=== PATIENT | female | born 1960 | race Caucasian/White ===

== ENCOUNTER 2018-12-18 02:38 | Emergency (ER) | payer SELFPAY ==
--- NOTE | 2018-12-18 03:08 | PDOC ---
History of Present Illness - General Chief Complaint: Headache Stated Complaint: HEADACHE Time Seen by Provider: 12/18/18 03:08 History Source: Patient Exam Limitations: Language Barrier - History of Present Illness Initial Comments: Candida Cano is a 58 yo obese F w a pmh of HTN, HCL, fatty liver and pre- diabetes who presents to the [facility] er with a headache that she has had for the past 3 weeks. She states she has been seen at urgent care for this headache and was diagnosed with an ear infection for which she received an antibiotic that she cannot name. She states that now she still has a headache, it is worse, and the area right behind her left ear is beginning to hurt. She denies photophobia or phonophobia. She endorses nausea but denies emesis. She denies fevers and chills as well but endorses left sided neck pain. The patient states that she has pain on the entire left side of her face which starts at her jaw, goes up to behind the ear, and then goes to her left forehead. She states It feels like a sharp shooting pain. Denies chest pain, SOB, difficulty breathing, numbness, weakness, tingling, urinary or bowel complaints. PCP: Giovanny Peterson PSH: Cholecystectomy Social Hx: Denies smoking, drinking, or other substance usage. Allergies:NKA, NKDA Past History - Past Medical History Allergies/Adverse Reactions: Allergies Allergy/AdvReac Type Severity Reaction Status Date / Time No Known Allergies Allergy Verified 12/18/18 03:18 Review of Systems - Review of Systems Able to Perform ROS?: Yes Comments:: CONSTITUTIONAL: Absent: fever, chills, diaphoresis, generalized weakness, malaise, loss of appetite HEENT: Present: ear pain, eye pain, facial pain Absent: rhinorrhea, nasal congestion, throat pain, throat swelling, difficulty swallowing, mouth swelling, visual Changes CARDIOVASCULAR: Absent: chest pain, syncope, palpitations, irregular heart rate, lightheadedness , peripheral edema RESPIRATORY: Absent: cough, shortness of breath, dyspnea with exertion, orthopnea, wheezing, stridor, hemoptysis GASTROINTESTINAL: Absent: abdominal pain, abdominal distension, nausea, vomiting, diarrhea, constipation, melena, hematochezia GENITOURINARY: Absent: dysuria, frequency, urgency, hesitancy, hematuria, flank pain, genital pain MUSCULOSKELETAL: Absent: myalgia, arthralgia, joint swelling SKIN: Absent: rash, itching, pallor HEMATOLOGIC/IMMUNOLOGIC: Absent: easy bleeding, easy bruising, lymphadenopathy, frequent infections ENDOCRINE: Absent: unexplained weight gain, unexplained weight loss, heat intolerance, cold intolerance NEUROLOGIC: Present: Headache Absent: focal weakness or paresthesias, dizziness, unsteady gait, seizure, mental status changes, bladder or bowel incontinence PSYCHIATRIC: Absent: anxiety, depression, suicidal or homicidal ideation, hallucinations. *Physical Exam - Physical Exam Comments: GENERAL: Patient appears to be in distress. Obese. Well-nourished. HEENT: The left mastoid bone is mildly tender. The external ears appear normal. The ear canals are not erythematous or tender. There is no tragus TTP. Normocephalic , atraumatic. PERRLA, EOMI. No conjunctival pallor. Sclera are non-icteric. Moist mucous membranes. Oropharynx is clear. CARDIOVASCULAR: Normal S1, S2. Regular rate and rhythm. PULMONARY: No evidence of respiratory distress. Lungs clear to auscultation bilaterally. No wheezing, rales or rhonchi. ABDOMEN: Soft, non-distended, non-tender. EXTREMITIES: Normal ROM in all four extremities. No gross deformities. SKIN: Warm, dry. No rash NEUROLOGICAL: Alert, awake, appropriate. Cranial nerves 2-12 intact. No deficits to light touch in face, upper extremities and lower extremities. No motor deficits in the in face, upper extremities and lower extremities. Normal speech. Gait is normal without ataxia. ED Treatment Course - LABORATORY CBC & Chemistry Diagram: 12/18/18 03:40 12/18/18 03:40 - RADIOLOGY Radiograph Interpretation: Head CT: EXAM: HEAD CT WITHOUT CONTRAST HISTORY rule out bleed versus mass versus infection COMPARISON: None. FINDINGS No acute intracranial abnormalities are identified. No hemorrhage. No visible mass or visible infarct. No edema shift or herniation. Osseous structures are intact. Medical Decision Making - Medical Decision Making Candida Cano is a 58 yo obese F w a pmh of HTN, HCL, fatty liver and pre- diabetes who presents to the [facility] er with a headache that she has had for the past 3 weeks. She states she has been seen at urgent care for this headache and was diagnosed with an ear infection for which she received an antibiotic that she cannot name. She states that now she still has a headache, it is worse, and the area right behind her left ear is beginning to hurt. She denies photophobia or phonophobia. She endorses nausea but denies emesis. She denies fevers and chills as well but endorses left sided neck pain. The patient states that she has pain on the entire left side of her face which starts at her jaw, goes up to behind the ear, and then goes to her left forehead. She states It feels like a sharp shooting pain. Vital Signs Temp Pulse Resp BP Pulse Ox 98 F 82 18 177/48 H 12/18/18 03:07 12/18/18 03:07 12/18/18 03:26 12/18/18 03:07 DDx IBNLT: Mastoiditis, otitis, URI, Headache - Migraine vs tension, electrolyte /metabolic disturbance Plan: Labs, EKG, Head CT, analgesia, IV hydration, re-assess. EKG: NS rate of 85, RBBB, borderline LAD possibly normal, minimal hypertrophy, no ST elevations or depressions, TWI in lead III, QT 356, NH 160 Labs: Elevated liver enzymes and mild hyperglycemia Head CT: No acute pathology Re-assessment: Patient feels better after analgesia and requests to be discharged. Disposition: Home with PCP, neuro and ENT follow up Discharge - Discharge Information Problems reviewed: Yes Clinical Impression/Diagnosis: Headache Qualifiers: Headache type: unspecified Headache chronicity pattern: acute headache Intractability: not intractable Qualified Code(s): R51 - Headache Condition: Improved Disposition: HOME - Admission No - Follow up/Referral Referrals: Giovanny Peterson PA [Primary Care Provider] - Armond Isaac MD [Staff Physician] - - Patient Discharge Instructions Patient Printed Discharge Instructions: Migraine Headaches (Alternative Therapy ), DI for Headache, DI for Ear Pain-Adult Additional Instructions: You came into the ER with a headache and ear pain. We gave you some medications which made you feel better. Please call up the ENT doctor we are referring you to and follow up in the next 5 to 10 days to make sure you are feeling well and getting better. Come back to the ER immediately if your pain worsens or you have any other new or worsening complaints. Thank you for coming to the [facility] ER. We hope you feel better soon! Print Language: ROMANIAN - Post Discharge Activity
[2018-12-18 03:18] VITALS: PULSE 82; TEMP 98; BMI 61.6
[2018-12-18] MEDS ORDERED: SODIUM CHLORIDE 1,000 ML IV ONE (03:26)
[2018-12-18] MEDS ORDERED: METOCLOPRAMIDE HCL INJECTION 10 MG/2 ML VIAL IVPUSH STA (03:26)
[2018-12-18] MEDS ORDERED: ACETAMINOPHEN 1000 MG/100 ML VIAL (NON FORMULARY) IVPB ONE (03:27)
[2018-12-18] MEDS ORDERED: ACETAMINOPHEN INJECTION 100 ML IVPB ONE (03:41)
[2018-12-18] MEDS ORDERED: METOCLOPRAMIDE HCL INJECTION 10 MG/2 ML VIAL ONE (03:41)
[2018-12-18 03:47] LABS: BASO % 0.6 % (0-2.0); EOS % 2.6 % (0-4.5); HEMATOCRIT 43.3 % (32.4-45.2); HEMOGLOBIN 14.9 GM/dL (10.7-15.3); LYMPH % 49.8 % (8-40); MCH 28.2 pg (25.7-33.7); MCHC 34.4 g/dl (32.0-36.0); MEAN CELL VOLUME 81.8 fl (80-96); MONO % 7.4 % (3.8-10.2); NEUT % 39.6 % (42.8-82.8); PLATELET COUNT 240 K/MM3 (134-434); RBC 5.29 M/mm3 (3.60-5.2); RDW 14.6 % (11.6-15.6); WHITE BLOOD COUNT 8.6 K/mm3 (4.0-10.0)
[2018-12-18 04:07] LABS: ALBUMIN 3.4 g/dl (3.4-5.0); BILIRUBIN,TOTAL 0.4 mg/dL (0.2-1); BLOOD UREA NITROGEN 14.4 mg/dL (7-18); CALCIUM 8.6 mg/dL (8.5-10.1); CREATININE 0.8 mg/dL (0.55-1.3); POTASSIUM 3.9 mmol/L (3.5-5.1); TOT PROT 7.4 g/dl (6.4-8.2)
[2018-12-18] MEDS ORDERED: KETOROLAC TROMETHAMINE 30 MG/1 ML VIAL IVPUSH ONE (04:55)
[2018-12-18 05:01] VITALS: BP 162/84
[2018-12-18] MEDS ORDERED: KETOROLAC TROMETHAMINE 30 MG/1 ML VIAL ONE (05:04)
--- NOTE | 2018-12-18 05:20 | PDOC ---
Attending Attestation - Resident Resident Name: Edvin Goodwin - ED Attending Attestation I have performed the following: I have examined & evaluated the patient, The case was reviewed & discussed with the resident, I agree w/resident's findings & plan, Exceptions are as noted - HPI HPI: 12/18/18 05:16 58 yo F with h/o fatty liver, htn hlc, on enalapril, here today c/o pulsating headche behind left ear. states started few days aog. describe as pounding heart beat in her ear. saw doctor was started on abx for ear infection. still c/ o headache. no weakness. no vision changes. no f/c nausea no vomiting. . did not take any thin for her pain prior to arrvial - Physicial Exam PE: 12/18/18 05:18 awake alert lungs clear bilat heart rrr no mrg abdsoft nt nd et wwp no edema. TM with clear serous effusion left greater than right. - Medical Decision Making 12/18/18 05:19 58 yo F with ear pain. pounding. differential ich, other mass, otitis externa or efffusion.
--- NOTE | 2018-12-18 13:20 | EKG ---
Test Reason : Blood Pressure : / mmHG Vent. Rate : 146 BPM Atrial Rate : 081 BPM P-R Int : 160 ms QRS Dur : 146 ms QT Int : 356 ms P-R-T Axes : 049 -33 003 degrees QTc Int : 554 ms POOR DATA QUALITY, INTERPRETATION MAY BE ADVERSELY AFFECTED SINUS RHYTHM LEFT AXIS DEVIATION RIGHT BUNDLE BRANCH BLOCK MINIMAL VOLTAGE CRITERIA FOR LVH, MAY BE NORMAL VARIANT ABNORMAL ECG Confirmed by MIKAEL LEMUS, LETICIA ([id number]) on 12/18/2018 1:19:44 PM Referred By: Confirmed By:LETICIA YOUSSEF MD
== END 2018-12-18 05:41 | disposition home or self-care (01) ==
LOC: JER 02:38
PROC: 3E033NZ Introduction of Analgesics, Hypnotics, Sedatives into Peripheral Vein, Percutaneous Approach (ICD-10-PCS; principal; 2018-12-18)
PROC: 3E033GC Introduction of Other Therapeutic Substance into Peripheral Vein, Percutaneous Approach (ICD-10-PCS; 2018-12-18)
PROC: 3E0333Z Introduction of Anti-inflammatory into Peripheral Vein, Percutaneous Approach (ICD-10-PCS; 2018-12-18)
PROC: 3E0337Z Introduction of Electrolytic and Water Balance Substance into Peripheral Vein, Percutaneous Approach (ICD-10-PCS; 2018-12-18)
DX: R51 Headache (principal); R73.03 Prediabetes; I10 Essential (primary) hypertension; K76.0 Fatty (change of) liver, not elsewhere classified; E66.01 Morbid (severe) obesity due to excess calories; Z68.44 Body mass index [BMI] 60.0-69.9, adult
CPT/HCPCS: 36415; 70450-TC; 80053; 85025; 93005; 93010; 99282-25; J0131; J7030

== ENCOUNTER 2019-12-09 10:48 | Emergency (ER) | payer OTHER ==
[2019-12-09 10:54] VITALS: BP 157/90; PULSE 102; TEMP 98; BMI 36.6
[2019-12-09] MEDS ORDERED: ACETAMINOPHEN 500 MG TABLET (FP) PO ONE (11:21)
[2019-12-09] MEDS ORDERED: ACETAMINOPHEN 500 MG TABLET (FP) ONE (11:24)
--- OUTSIDE RECORDS SUMMARY | 2019-12-09 11:41 | XMS ---
:1960 Author Organization [facility] Care Team Providers Name Role Phone Dannie Llamashi Unavailable [phone] ED STAFF PHYSICIAN, STAFF Unavailable Unavailable Aszalos, Opal Tori Unavailable Unavailable Aszalos, Tori Unavailable Unavailable Aszalos, Tori Unavailable Unavailable Aszalos, Tori Unavailable Unavailable Aszalos, Tori Unavailable Unavailable Aszalos, Tori Unavailable Unavailable Aszalos, Tori Unavailable Unavailable Aszalos, Tori Unavailable Unavailable Aszalos, Tori Unavailable Unavailable Castellanos Unavailable [phone] Castellanos Unavailable [phone] Brianda Mcintosh MD Unavailable Unavailable Brianda Mcintosh MD Unavailable Unavailable Brianda Mcintosh MD Unavailable Unavailable Brianda Mcintosh MD Unavailable Unavailable Brianda Mcintosh MD Unavailable Unavailable Brianda Mcintosh MD Unavailable Unavailable Brianda Mcintosh MD Unavailable Unavailable Brianda Mcintosh MD Unavailable Unavailable Brianda Mcintosh MD Unavailable Unavailable Brianda Mcintosh MD Unavailable Unavailable Brianda Mcintosh MD Unavailable Unavailable Brianda Mcintosh MD Unavailable Unavailable Brianda Mcintosh MD Unavailable Unavailable Brianda Mcintosh MD Unavailable Unavailable Brianda Mcintosh MD Unavailable Unavailable FEBRILLET KAYLIE P Unavailable Unavailable ZUNASSIGNED Unavailable Unavailable HECTOR OMIEL L Unavailable Unavailable Sanchez Unavailable Unavailable Sanchez Unavailable Unavailable Sanchez Unavailable Unavailable Sanchez Unavailable Unavailable Sanchez Unavailable Unavailable Ringstad Unavailable Unavailable Ringstad Unavailable Unavailable Ringstad Unavailable Unavailable Ringstad Unavailable Unavailable Ringstad Unavailable Unavailable Ringstad Unavailable Unavailable Ringstad Unavailable Unavailable Ringstad Unavailable Unavailable Ringstad Unavailable Unavailable Ringstad Unavailable Unavailable Ringstad Unavailable Unavailable Glenn Unavailable [phone] Re-disclosure Warning The records that you are about to access may contain information from federally- assisted alcohol or drug abuse programs. If such information is present, then the following federally mandated warning applies: This information has been disclosed to you from records protected by federal confidentiality rules (42 CFR part 2). The federal rules prohibit you from making any further disclosure of this information unless further disclosure is expressly permitted by the written consent of the person to whom it pertains or as otherwise permitted by 42 CFR part 2. A general authorization for the release of medical or other information is NOT sufficient for this purpose. The Federal rules restrict any use of the information to criminally investigate or prosecute any alcohol or drug abuse patient.The records that you are about to access may contain highly sensitive health information, the redisclosure of which is protected by Article 27-F of the [facility] Public Health law. If you continue you may haveaccess to information: Regarding HIV / AIDS; Provided by facilities licensed or operated by the [facility] Office of Mental Health; or Provided by the [facility] Office for People With Developmental Disabilities. If such information is present, then the following [facility] mandated warning applies: This information has been disclosed to you from confidential records which are protected by state law. State law prohibits you from making any further disclosure of this information without the specific written consent of the person to whom it pertains, or as otherwise permitted by law. Any unauthorized further disclosure in violation of state law may result in a fine or nursing home sentence or both. A general authorization for the release of medical or other information is NOT sufficient authorization for further disclosure. Allergies and Adverse Reactions Type Description Substance Reaction Status Data Source(s ) Propensity to Propensity to Propensity to NEXTG EN ([facility] adverse reactions adverse reactions adverse reactions [facility] Medical (disorder) (disorder) (disorder) Center) Encounters Encounter Providers Location Date Indications Data Source(s ) Emergency Attender: KRUNAL Pichardo 12/06/2019 [facility]ZON LAttender: 11:26:00 PM Medical Center STAFF ED STAFF EDT - PHYSICIANAdmitter: 12/07/2019 HECTOR NOY 02:26:00 AM LReferrer: EDT ZUNASSIGNED Patient discharged. Outpatient Attender: KAYLIE Pichardo 07/16/2019 12:05:00 S aiaram Rachid LOTT PM EDT Medical Ce nter PAdmitter: KAYILE LOTT PReferrer: KAYLIE WESTBROOKJOSEPH [place] Outpatient Attender: KAYLIE Pichardo 05/01/2019 02:19:00 S aiaram Rachid WESTBROOKJOSEPH KAYLIE PM EST Medical Ce nter PAdmitter: KAYLIE SERRA KAYLIE PReferrer: KAYLIE WESTBROOKJOSEPH [place] Outpatient Attender: KAYLIE Pichardo 04/20/2019 02:21:00 S aiaram Rachid LOTT PM EST Medical Ce nter PAdmitter: KAYLIE LOTT PReferrer: KAYLIE WESTBROOKJOSEPH [place] Attender: [facility] 11/26/2018 03:01:00 NEXTGEN ([facility] PM EDT - 11/26/2018 [facility] Medical 03:01:00 PM EDT Center) [facility] 11/24/2018 11:15:00 [facility] AM EDT - 11/24/2018 [facility] 02:52:00 PM EDT Patient discharged. Attender: [facility] 07/18/2018 02:49:00 [facility] EDT - 07/18/2018 [facility] 02:49:00 PM EDT Center) Attender: [facility] 07/08/2018 11:45:00 [facility] ([facility] EDT - 07/08/2018 [facility] 11:45:00 AM EDT Center) Attender: [facility] 07/03/2018 09:40:00 A [facility] ([facility] EDT - 07/03/2018 [facility] 09:40:00 AM EDT Center) Attender: [facility] 04/29/2018 12:32:00 [facility] ([facility] EST - 04/29/2018 [facility] 12:32:00 PM EST Center) Attender: Monika 04/09/2018 12:10:00 [facility] ([facility] - 04/09/2018 [facility] 12:10:00 PM EST Center) Attender: [facility] 04/09/2018 10:00:00 AM NEXTGEN ([facility] EST - 04/09/2018 [facility] 10:00:00 AM EST Center) Attender: [facility] 12/27/2014 01:04:00 PM NEXTGEN ([facility] EDT - 12/27/2014 [facility] 01:04:00 PM EDT Center) Attender: [facility] 11/18/2014 09:11:00 AM NEXTGEN ([facility] EDT - 11/18/2014 [facility] 09:11:00 AM EDT Center) Attender: [facility] 02/02/2014 01:28:00 PM NEXTGEN ([facility] EST - 02/02/2014 [facility] 01:28:00 PM EST Center) Attender: [facility] 01/26/2014 01:19:00 PM NEXTGEN ([facility] - 01/26/2014 [facility] 01:19:00 PM EST Center) Attender: [facility] 01/18/2014 01:02:00 PM NEXTGEN ([facility] - 01/18/2014 [facility] 01:02:00 PM EST Center) Attender: [facility] 01/11/2014 01:16:00 PM NEXTGEN ([facility] - 01/11/2014 [facility] 01:16:00 PM EST Center) Attender: [facility] 01/05/2014 10:51:00 AM NEXTGEN ([facility] EST - 01/05/2014 [facility] 10:51:00 AM EST Center) Immunizations Vaccine Date Status Description Data Source(s) IIV3. This is one of 12/27/2014 completed Influenza, seasonal, NEXTGEN ([facility] two codes replacing 12:00:00 AM EDT injectable (3 yrs or [facility] Medical CVX 15, which is older) Center) being retired. Source: New Immunization Record This code is being 01/05/2014 12:00:00 completed Flu (split) (3 NEXTGEN ([facility] retired. It will still be AM EST yrs or older) [facility] found in older Center) immunization records. It included both preservative free and non-preservative free. Source: New Immunization Record Tdap 01/05/2014 12:00:00 AM EST completed Tdap N EXTGEN ([facility]) Source: New Immunization Record Medications Medication Brand Start Product Dose Route Administrative Pharmacy fidelia Indications Reaction Description Data Name Date Form Instructions Instructions Source(s) Metformin metfor ORAL complet take 1 N EXTGEN hydrochlori min 2014 {tbl} ed tablet by (S aint de 500 MG 500 mg 12:00: oral route 2 Rachid Oral Tablet tablet 00 AM times ever y Medical metformin EDT day with Center ) 500 mg morning and tablet evening meals Lisinopril lisino ORAL complet take 1 NEXTGEN 5 MG Oral pril 5 2014 {tbl} ed tablet by (S aint Tablet mg 12:00: oral route Faisal hs lisinopril tablet 00 AM every day M edical 5 mg tablet EDT Center) Amlodipine amlodi ORAL active take 1 N EXTGEN 5 MG Oral pine 5 2014 {tbl} tablet by (S aint Tablet mg 12:00: oral route Faisal hs amlodipine tablet 00 AM every day M edical 5 mg tablet EDT Center) Hydrochloro hydroc ORAL complet take 1 NEXTGEN thiazide hlorot 2014 {tbl} ed tablet by (Sa int 12.5 MG hiazid 12:00: oral route Kavitha sephs Oral Tablet e 12.5 00 AM every day Medical hydrochloro mg EDT Center) thiazide tablet 12.5 mg tablet Benicar 5 Olmesa . ORAL complet take 2 N EXTGEN mg tablet rtan 2013 {tbl} ed tablet by (Martín nt medoxo 12:00: oral route Faisal hs mil 5 00 AM every day Medical MG EST Center) Oral Tablet [Benic ar] POLYETHYLEN Mirala 01/26/ complet POLYET HYLENE NEXTGEN E GLYCOL x 2013 ed GLYCOL 3350 (Martín nt 3350 142 gram/d 12:00: 16984 MG [place] ephs MG/ML Oral ose 00 AM Powder for Me dical Solution oral EST Oral Center) [Miralax] powder Solution Miralax 17 [Miralax] gram/dose oral powder nebivolol 5 Bystol .00 ORAL complet nebivo lol 5 NEXTGEN MG Oral ic 2013 {tbl} ed MG Oral (Saint Tablet mg 12:00: Tablet Rachid [Bystolic] tablet 00 AM [Bystolic] Medical Bystolic 5 EST Center) mg tablet Acetaminoph oxyCOD 1 complet Martín nt en 325 MG / ONE-ac ed Darrian s Oxycodone etamin Medical Hydrochlori ophen Center de 5 MG 5 Oral Tablet mg-325 oxyCODONE-a mg cetaminophe Tablet n 5 mg-325 , mg Tablet, Ordere Ordered By: d By: Krunal Salmeron MDDirection , s: 1 tablet MDDire oral every ctions six hours : 1 PRN pain tablet oral every six hours PRN pain Ibuprofen ibupro 1 complet [facility] 800 MG Oral fen ed Rachid Tablet 800 mg Medical ibuprofen Tablet Center 800 mg , Tablet, Ordere Ordered By: d By: Krunal Salmeron MDDirection , s: 1 tablet MDDire oral every ctions eight hours : 1 PRN tablet pain-modera oral te every eight hours PRN pain-m oderat e meloxicam meloxi 1 complet [facility] 15 MG Oral cam 15 ed Rachid Tablet mg Medical meloxicam Tablet Center 15 mg , Tablet, Ordere Ordered By: d By: Samanta Aguilar MDDirection r, s: 1 tablet MDDire oral daily ctions : 1 tablet oral daily Cyclobenzap cyclob 1 complet Martín nt rine enzapr ed Rachid hydrochlori ine 10 Medica l de 10 MG mg Center Oral Tablet Tablet cyclobenzap , rine 10 mg Ordere Tablet, d By: Ordered By: andre Worrell MDDirection MDDire s: 1 tablet ctions oral three : 1 times a day tablet PRN oral pain-modera three te times a day PRN pain-m oderat e Lidocaine lidoca 1 complet Saint 50 MG/ML ine 5 ed Rachid Topical % Medical Cream Cream, Center lidocaine 5 Ordere % Cream, d By: Ordered By: Noy Hector, , MDDirection MDDire s: 1 ctions application : 1 per rectum applic twice a day ation per rectum twice a day Insurance Providers Payer name Policy type Policy ID Covered Covered libertarian's Policy P anastasiya / Coverage libertarian ID relationship to Pastor Inf ormation type pastor HMO O [id number] 01 [id number] ESSENTIALS-COM MERCIAL [facility] O [id number] 01 [id number] HEALTHCARE OPD SELF PAY SP INSURANCE O O X F O R D O [id number] Problems, Conditions, and Diagnoses Code Display Name Description Problem Type Effective Data Sour ce(s) Dates [id number] Hypertensive Hypertensive Problem 01/05/2014 COUNTS INCLUDE 234 BEDS AT THE [facility] ( aint disorder disorder 12:00:00 AM [facility]) [id number] Diabetes mellitus Diabetes mellitus Problem COUNTS INCLUDE 234 BEDS AT THE [facility] ([facility]) [id number] Dyslipidemia Dyslipidemia Problem COUNTS INCLUDE 234 BEDS AT THE [facility] ([facility]) R92.8 Other abnormal OTH ABN AND Diagnosis 07/16/2019 [facility] ephs and inconclusive INCONCLUSIVE 12:05:00 PM [facility] Center findings on FINDINGS ON DX EDT diagnostic IMAGING OF BREAST imaging of breast Z12.31 Encounter for ENCNTR SCREEN Diagnosis 05/01/2019 [facility] screening MAMMOGRAM FOR 02:19:00 PM Medical Ce nter mammogram for MALIGNANT EST malignant NEOPLASM OF neoplasm of BREAST breast M54.5 Low back pain LOW BACK PAIN Diagnosis 04/20/2019 [facility] 02:21:00 PM Medical Amalia r EST G44.209 Tension-type TENSION-TYPE Diagnosis 11/24/2018 [facility] phs headache, HEADACHE, 11:15:00 AM Medical Amalia powell unspecified, not UNSPECIFIED, NOT EDT intractable INTRACTABLE R51 Headache HEADACHE Diagnosis 11/24/2018 [facility] 11:15:00 AM Medical Amalia powell EDT Results ID Date Data Source LIPID.[id number] 11/24/2018 11:47:00 AM EDT [facility] Name Value Range Interpretation Description Data Sup porting Code Source(s) Document(s ) UNK < 100 Above high normal <content Saint styleCode="Marta Rashid d">LDL-Cholest [facility] </content>186 MG/DL H<content styleCode="Estee lics"> (< 100 MG/DL)</conten t> Cholesterol -<200 Above high normal <content Saint [Mass/volume] in styleCode="[facility] Serum or Plasma d">Cholesterol Medical </content>259 Center MG/DL H<content styleCode="Estee lics"> (-<200 MG/DL)</conten t> UNK > 60 Below low normal <content Saint styleCode="[facility] d">HDL- Medical Cholesterol Center </content>36 MG/DL L<content styleCode="Estee lics"> (> 60 MG/DL)</conten t> Triglyceride < 150 Above high normal <content Saint [Mass/volume] in styleCode="[facility] Serum or Plasma d">Triglycerid Medical es Center </content>184 MG/DL H<content styleCode="Estee lics"> (< 150 MG/DL)</conten t> ID Date Data Source HematologyRou.[id number] 11/24/2018 11:47:00 AM EDT Martín [facility] 0400 Name Value Range Interpretation Description Data Sup porting Code Source(s) Document(s ) Hemoglobin 12.3-16. <content Saint [Mass/volume] in 0 styleCode="Bold Rachid Blood ">Hemoglobin Medical </content>15.1 Center G/DL<content styleCode="Ital ics"> (12.3-16.0 G/DL)</content> Leukocytes 4.4-11.0 <content Saint [#/volume] in styleCode="Bold Rachid Blood by ">White Blood Medical Automated count Cell Count Center </content>7.97 KCUMM<content styleCode="Ital ics"> (4.4-11.0 KCUMM)</content > Erythrocytes 4.0-5.1 Above high <content Saint [#/volume] in normal styleCode="Bold Rachid Blood by ">Red Blood Medical Automated count Cell Count Center </content>5.43 MCUMM H<content styleCode="Ital ics"> (4.0-5.1 MCUMM)</content > Hematocrit 36.0-46. <content Saint [Volume 0 styleCode="Bold Rachid Fraction] of ">Hematocrit Medical Blood by </content>43.0 Center Automated count %<content styleCode="Ital ics"> (36.0-46.0 %)</content> Erythrocyte mean 32.0-37. <content Saint corpuscular 0 styleCode="Bold Rachid hemoglobin ">Mean Corpus. Medical concentration Hgb Center [Mass/volume] by Concentration Automated count (MCHC) </content>35.1 G/DL<content styleCode="Ital ics"> (32.0-37.0 G/DL)</content> Erythrocyte mean 80.0-100 <content Saint corpuscular .0 styleCode="Bold Rachid volume [Entitic ">Mean Medical volume] by Corpuscular Center Automated count Volume </content>79.2 FL<content styleCode="Ital ics"> (80.0-100.0 FL)</content> Platelets 130-400 <content Saint [#/volume] in styleCode="Bold Rachid Blood by ">Platelet Medical Automated count Count Center </content>286 KCUMM<content styleCode="Ital ics"> (130-400 KCUMM)</content > Erythrocyte mean 26.0-34. <content [facility] corpuscular 0 styleCode="Bold Rachid hemoglobin ">Mean Medical [Entitic mass] Corposcular Center by Automated Hemoglobin count </content>27.8 PG<content styleCode="Ital ics"> (26.0-34.0 PG)</content> Erythrocyte 11.5-14. <content Saint distribution 5 styleCode="Bold Rachid width [Ratio] by ">Red Cell Medical Automated count Distribution Center Width </content>13.6 %<content styleCode="Ital ics"> (11.5-14.5 %)</content> UNK 0.0 <content Saint styleCode="Bold Rachid ">Nucleated Red Medical Blood Cell Center Count </content>0.00 KCUMM<content styleCode="Ital ics"> (0.0 KCUMM)</content > UNK 0 <content Saint styleCode="Bold Rachid ">Nucleated Red Medical Blood Cell Center </content>0.0 /100<content styleCode="Ital ics"> (0 /100)</content> Platelet mean 8.0-11.0 <content Saint volume [Entitic styleCode="Bold Rachid volume] in Blood ">Mean Platelet Medical by Automated Volume Center count </content>10.9 FL<content styleCode="Ital ics"> (8.0-11.0 FL)</content> ID Date Data Source GFR(Creatinine).[id number] 11/24/2018 11:47:00 AM EDT [facility] 0-0400 Name Value Range Interpretation Code Description Data Yareli rce(s) Supporting Document(s ) UNK > 60 <content [facility] styleCode="Bold"> Medical Cent er EGFR </content>91 GFR<content styleCode="Italic s"> (> 60 GFR)</content> ID Date Data Source Coagulation 11/24/2018 11:47:00 AM [facility] ical Center Rout.[id number] EDT Name Value Range Interpretation Description Data Sup porting Code Source(s) Document(s ) UNK 9.0-13.0 <content Saint styleCode="Bold" Rachid >Protime Medical </content>12.4 Center SEC<content styleCode="Itali cs"> (9.0-13.0 SEC)</content> aPTT in 25.1-36. <content Saint Platelet poor 5 styleCode="Bold" Rachid plasma by >Partial Medical Coagulation Thromboplastin Center assay Time </content>30.9 SEC<content styleCode="Itali cs"> (25.1-36.5 SEC)</content> INR in 0.80-1.2 <content Saint Platelet poor 0 styleCode="Bold" Rachid plasma by >INR Medical Coagulation </content>1.12 Center assay #<content styleCode="Itali cs"> (0.80-1.20 #)</content> ID Date Data Source CardiacMarkers.[id number] 11/24/2018 11:47:00 AM EDT [facility] -0400 Name Value Range Interpretation Description Data Sup porting Code Source(s) Document(s ) Troponin < 0.034 <content Saint I.cardiac styleCode="Bold Rachid [Mass/volume ">Troponin I Medical ] in Serum </content>< Center or Plasma 0.012 NG/ML<content styleCode="Ital ics"> (< 0.034 NG/ML)</content > ID Date Data Source [facility].[id number] 11/24/2018 11:47:00 AM EDT [facility] Medical Center Name Value Range Interpretation Description Data Sup porting Code Source(s) Document(s ) Sodium 137-145 <content Saint [Moles/volume] styleCode="Marta Rachid in Serum or d">Sodium Medical Plasma </content>141 Center MEQ/L<content styleCode="Estee lics"> (137-145 MEQ/L)</conten t> Potassium 3.5-5.3 <content Saint [Moles/volume] styleCode="Marta Rachid in Serum or d">Potassium Medical Plasma </content>4.4 Center MEQ/L<content styleCode="Estee lics"> (3.5-5.3 MEQ/L)</conten t> UNK 7-17 <content Saint styleCode="Marta Rachid d">BUN Medical </content>15 Center MG/DL<content styleCode="Estee lics"> (7-17 MG/DL)</conten t> Chloride 98-107 <content Saint [Moles/volume] styleCode="Marta Rachid in Serum or d">Chloride Medical Plasma </content>100 Center MEQ/L<content styleCode="Estee lics"> (98-107 MEQ/L)</conten t> Carbon 22-30 <content Saint dioxide, total styleCode="Marta Rachid [Moles/volume] d">Carbon Medical in Serum or Dioxide Center Plasma </content>30 MEQ/L<content styleCode="Estee lics"> (22-30 MEQ/L)</conten t> Creatinine 0.5-1.3 <content Saint [Mass/volume] styleCode="Marta Rachid in Serum or d">Creatinine Medical Plasma </content>0.7 Center MG/DL<content styleCode="Estee lics"> (0.5-1.3 MG/DL)</conten t> Glucose 74-106 Above high normal <content Saint [Mass/volume] styleCode="Marta Colmenaress in Serum or d">Glucose Medical Plasma </content>167 Center MG/DL H<content styleCode="Estee lics"> (74-106 MG/DL)</conten t> UNK > 60 <content Saint styleCode="Marta Colmenaress d">EGFR Medical </content>91 Center GFR<content styleCode="Estee lics"> (> 60 GFR)</content> Calcium 8.4-10.2 <content Saint [Mass/volume] styleCode="Marta Colmenaress in Serum or d">Calcium Medical Plasma </content>9.8 Center MG/DL<content styleCode="Estee lics"> (8.4-10.2 MG/DL)</conten t> ID Date Data Source Urinalysis.[id number] 11/24/2018 11:41:00 AM EDT [facility] 0 Name Value Range Interpretation Description Data Sup porting Code Source(s) Document(s ) Specific 1.015-1.02 <content Saint gravity of 5 styleCode="Marta Rashid Urine by Test d">Urine Medical strip Specific Center [place] </content>1.01 5 <content styleCode="Estee lics"> (1.015-1.025 )</content> Glucose NEGATIVE <content Saint [Mass/volume] styleCode="Marta Colmenaress in Urine by d">Urine Medical Test strip Glucose Center </content>NEGA TIVE MG/DL<content styleCode="Estee lics"> (NEGATIVE MG/DL)</conten t> UNK CLEAR <content Saint styleCode="Marta Colmenaress d">Urine Medical Clarity Center </content>FRANCISCA R <content styleCode="Estee lics"> (CLEAR )</content> UNK NEGATIVE <content Saint styleCode="Marta Rachid d">Urine Medical Bilirubin Center </content>NEGA TIVE <content styleCode="Estee lics"> (NEGATIVE )</content> Ketones NEGATIVE <content Saint [Mass/volume] styleCode="Marta Colmenaress in Urine by d">Urine Medical Test strip Ketone Center </content>NEGA TIVE MG/DL<content styleCode="Estee lics"> (NEGATIVE MG/DL)</conten t> Color of Urine YELLOW <content Saint styleCode="Marta Rachid d">Color, Medical Urine Center </content>YELL OW <content styleCode="Estee lics"> (YELLOW )</content> Hemoglobin NEGATIVE <content Saint [Presence] in styleCode="Marta Colmenaress Urine by Test d">Urine Blood Medical strip </content>TRAC Center E <content styleCode="Estee lics"> (NEGATIVE )</content> Nitrite NEGATIVE <content Saint [Presence] in styleCode="Marta Colmenaress Urine by Test d">Urine Medical strip Nitrite Center </content>NEGA TIVE <content styleCode="Estee lics"> (NEGATIVE )</content> Protein NEGATIVE <content Saint [Mass/volume] styleCode="Marta Colmenaress in Urine by d">Urine Medical Test strip Protein Center </content>TRAC E MG/DL<content styleCode="Estee lics"> (NEGATIVE MG/DL)</conten t> pH of Urine by 4.5-8.0 <content Saint Test strip styleCode="Marta Rachid d">Urine pH Medical </content>6.0 Center <content styleCode="Estee lics"> (4.5-8.0 )</content> Urobilinogen 0.2-1.0 <content Saint [Units/volume] styleCode="Marta Rachid in Urine by d">Urine Medical Test strip Urobilinogen Center </content>0.2 MG/DL<content styleCode="Estee lics"> (0.2-1.0 MG/DL)</conten t> UNK NEGATIVE <content Saint styleCode="Marta Rachid d">Urine Medical Bacteria Center </content>FEW HPF<content styleCode="Estee lics"> (NEGATIVE HPF)</content> UNK 0-3 <content Saint styleCode="Marta Rachid d">Urine Red Medical Blood Cell Center </content>0-3 HPF<content styleCode="Estee lics"> (0-3 HPF)</content> UNK 0-3 <content Saint styleCode="Marta Colmenaress d">Urine White Medical Blood Cell Center </content>0-3 HPF<content styleCode="Estee lics"> (0-3 HPF)</content> UNK <content Saint styleCode="Marta Colmenaress d">Epithelial Medical Cell Center </content>2-5 LPF (Reference Range: not available)<br/ > Leukocyte NEGATIVE <content esterase styleCode="Marta Rashid [Presence] in d">Urine Medical Urine by Test Leukocyte Center strip </content>NEGA TIVE <content styleCode="Estee lics"> (NEGATIVE )</content> ID Date Data Source Liver Profile 04/09/2018 12:10:00 PM EST [facility] Name Value Range Interpretation Description Data Sup porting Code Source(s) Document(s ) Aspartate 14-36 Above high <content Saint aminotransferase normal styleCode="Bold"> Faisal hs [Enzymatic Aspartate Medical activity/volume] Aminotransferase Center in Serum or Plasma (AST) </content>98 IU/L H<content styleCode="Italic s"> (14-36 IU/L)</content> Bilirubin.total 0.2-1.3 <content Saint [Mass/volume] in styleCode="Bold"> Faisal hs Serum or Plasma Bilirubin Total Medical </content>0.5 Center MG/DL<content styleCode="Italic s"> (0.2-1.3 MG/DL)</content> Albumin 3.5-5.0 <content [facility] [Mass/volume] in styleCode="Bold"> Faisal hs Serum or Plasma Albumin Medical </content>4.4 Center G/DL<content styleCode="Italic s"> (3.5-5.0 G/DL)</content> Alkaline 38-126 Above high <content [facility] phosphatase normal styleCode="Bold"> Rachid [Enzymatic Alkaline Medical activity/volume] Phosphatase (ALP) Cente r in Serum or Plasma </content>127 IU/L H<content styleCode="Italic s"> (38-126 IU/L)</content> Alanine 7-30 Above high <content [facility] aminotransferase normal styleCode="Bold"> Faisal hs [Enzymatic Alanine Medical activity/volume] Aminotransferase Center in Serum or Plasma (ALT) </content>116 IU/L H<content styleCode="Italic s"> (7-30 IU/L)</content> ID Date Data Source [id number] 04/09/2018 12:10:00 PM [facility] Name Value Range Interpretation Description Data Sup porting Code Source(s) Document(s ) Cholesterol -<200 Above high normal <content Saint [Mass/volume] in styleCode="[facility] Serum or Plasma d">Cholesterol Medical </content>244 Center MG/DL H<content styleCode="Estee lics"> (-<200 MG/DL)</conten t> Triglyceride < 150 Above high normal <content Saint [Mass/volume] in styleCode="[facility] Serum or Plasma d">Triglycerid Medical Center </content>151 MG/DL H<content styleCode="Estee lics"> (< 150 MG/DL)</conten t> UNK < 100 Above high normal <content Saint styleCode="Marta Rachid d">LDL-Cholest Medical vincent Center </content>175 MG/DL H<content styleCode="Estee lics"> (< 100 MG/DL)</conten t> UNK > 60 Below low normal <content Saint styleCode="Marta Rachid d">HDL- Medical Cholesterol Center </content>39 MG/DL L<content styleCode="Estee lics"> (> 60 MG/DL)</conten t> ID Date Data Source [id number] 04/09/2018 12:10:00 PM EST [facility] Name Value Range Interpretation Description Data Sup porting Code Source(s) Document(s ) Thyrotropin 0.465-4. <content Saint [Units/volume] 68 styleCode="Amrta Rachid in Serum or d">Thyroid Medical Plasma by Stimulating Center Detection Hormone limit <= 0.05 </content>0.93 mIU/L 5 MIU/L<content styleCode="Estee lics"> (0.465-4.68 MIU/L)</conten t> ID Date Data Source [id number] 04/09/2018 12:10:00 PM EST [facility] Name Value Range Interpretation Description Data Sup porting Code Source(s) Document(s ) Erythrocytes 4.0-5.1 <content Saint [#/volume] in styleCode="Bold Rachid Blood by ">Red Blood Medical Automated count Cell Count Center </content>5.03 MCUMM<content styleCode="Ital ics"> (4.0-5.1 MCUMM)</content > Leukocytes 4.4-11.0 <content Saint [#/volume] in styleCode="Bold Rachid Blood by ">White Blood Medical Automated count Cell Count Center </content>7.10 KCUMM<content styleCode="Ital ics"> (4.4-11.0 KCUMM)</content > Hematocrit 36.0-46. <content Saint [Volume 0 styleCode="Bold Rachid Fraction] of ">Hematocrit Medical Blood by </content>39.9 Center Automated count %<content styleCode="Ital ics"> (36.0-46.0 %)</content> Hemoglobin 12.3-16. <content Saint [Mass/volume] in 0 styleCode="Bold Rachid Blood ">Hemoglobin Medical </content>14.1 Center G/DL<content styleCode="Ital ics"> (12.3-16.0 G/DL)</content> Erythrocyte mean 26.0-34. <content Saint corpuscular 0 styleCode="Bold Rachid hemoglobin ">Mean Medical [Entitic mass] Corposcular Center by Automated Hemoglobin count </content>28.0 PG<content styleCode="Ital ics"> (26.0-34.0 PG)</content> Erythrocyte mean 80.0-100 <content Saint corpuscular .0 styleCode="Bold Rachid volume [Entitic ">Mean Medical volume] by Corpuscular Center Automated count Volume </content>79.3 FL<content styleCode="Ital ics"> (80.0-100.0 FL)</content> UNK 0 <content Saint styleCode="Bold Rachid ">Nucleated Red Medical Blood Cell Center </content>0.0 /100<content styleCode="Ital ics"> (0 /100)</content> Platelets 130-400 <content Saint [#/volume] in styleCode="Bold Rachid Blood by ">Platelet Medical Automated count Count Center </content>312 KCUMM<content styleCode="Ital ics"> (130-400 KCUMM)</content > Platelet mean 8.0-11.0 <content Saint volume [Entitic styleCode="Bold Rachid volume] in Blood ">Mean Platelet Medical by Automated Volume Center count </content>10.9 FL<content styleCode="Ital ics"> (8.0-11.0 FL)</content> UNK 0.0 <content Saint styleCode="Bold Rachid ">Nucleated Red Medical Blood Cell Center Count </content>0.00 KCUMM<content styleCode="Ital ics"> (0.0 KCUMM)</content > Erythrocyte 11.5-14. <content Saint distribution 5 styleCode="Bold Rachid width [Ratio] by ">Red Cell Medical Automated count Distribution Center Width </content>13.7 %<content styleCode="Ital ics"> (11.5-14.5 %)</content> Erythrocyte mean 32.0-37. <content Saint corpuscular 0 styleCode="Bold [facility] hemoglobin ">Mean Corpus. Medical concentration Hgb Center [Mass/volume] by Concentration Automated count (MCHC) </content>35.3 G/DL<content styleCode="Ital ics"> (32.0-37.0 G/DL)</content> ID Date Data Source GFR(Creatinine) 04/09/2018 12:10:00 PM [facility] Name Value Range Interpretation Code Description Data Yareli rce(s) Supporting Document(s ) UNK > 60 <content [facility] styleCode="Bold"> Medical Cent er EGFR </content>78 GFR<content styleCode="Italic s"> (> 60 GFR)</content> ID Date Data Source [id number] 04/09/2018 12:10:00 PM [facility] Name Value Range Interpretation Description Data Sup porting Code Source(s) Document(s ) UNK 4.2-5.8 Above high normal <content Anderson s styleCode="Bold Medical ">Hemoglobin Center A1C </content>7.8 % H<content styleCode="Ital ics"> (4.2-5.8 %)</content> UNK 2.3-3.5 <content [facility] styleCode="Bold Medical ">Globulin Center </content>3.3 G/DL<content styleCode="Ital ics"> (2.3-3.5 G/DL)</content> UNK >= 1.0 <content [facility] styleCode="Bold Medical ">AG Ratio Center </content>1.3 NM<content styleCode="Ital ics"> (>= 1.0 NM)</content> Protein 6.3-8.2 <content [facility] [Mass/volum styleCode="Bold Medical e] in Serum ">Total Protein Center or Plasma </content>7.7 G/DL<content styleCode="Ital ics"> (6.3-8.2 G/DL)</content> ID Date Data Source [id number] 04/09/2018 12:10:00 PM EST [facility] Name Value Range Interpretation Description Data Sup porting Code Source(s) Document(s ) Sodium 137-145 <content Saint [Moles/volume] in styleCode="Bold"> Kaylie phs Serum or Plasma Sodium Medical </content>140 Center MEQ/L<content styleCode="Italic s"> (137-145 MEQ/L)</content> Glucose 74-106 Above high <content Saint [Mass/volume] in normal styleCode="Bold"> Faisal hs Serum or Plasma Glucose Medical </content>131 Center MG/DL H<content styleCode="Italic s"> (74-106 MG/DL)</content> Carbon dioxide, 22-30 Above high <content [facility] total normal styleCode="Bold"> Rachid [Moles/volume] in Carbon Dioxide Medical Serum or Plasma </content>32 Center MEQ/L H<content styleCode="Italic s"> (22-30 MEQ/L)</content> Creatinine 0.5-1.3 <content [facility] [Mass/volume] in styleCode="Bold"> Faisal hs Serum or Plasma Creatinine Medical </content>0.8 Center MG/DL<content styleCode="Italic s"> (0.5-1.3 MG/DL)</content> Potassium 3.5-5.3 <content [facility] [Moles/volume] in styleCode="Bold"> Kaylie phs Serum or Plasma Potassium Medical </content>4.7 Center MEQ/L<content styleCode="Italic s"> (3.5-5.3 MEQ/L)</content> UNK 7-17 <content Saint styleCode="Bold"> Rachid BUN </content>16 Medical MG/DL<content Center styleCode="Italic s"> (7-17 MG/DL)</content> Chloride 98-107 <content [facility] [Moles/volume] in styleCode="Bold"> Kaylie phs Serum or Plasma Chloride Medical </content>102 Center MEQ/L<content styleCode="Italic s"> (98-107 MEQ/L)</content> UNK > 60 <content Saint styleCode="Bold"> Rachid EGFR </content>78 Medical GFR<content Center styleCode="Italic s"> (> 60 GFR)</content> Alanine 7-30 Above high <content [facility] aminotransferase normal styleCode="Bold"> Faisal hs [Enzymatic Alanine Medical activity/volume] Aminotransferase Center in Serum or Plasma (ALT) </content>116 IU/L H<content styleCode="Italic s"> (7-30 IU/L)</content> Calcium 8.4-10. <content [facility] [Mass/volume] in 2 styleCode="Bold"> Faisal hs Serum or Plasma Calcium Medical </content>9.5 Center MG/DL<content styleCode="Italic s"> (8.4-10.2 MG/DL)</content> Bilirubin.total 0.2-1.3 <content [facility] [Mass/volume] in styleCode="Bold"> Faisal hs Serum or Plasma Bilirubin Total Medical </content>0.5 Center MG/DL<content styleCode="Italic s"> (0.2-1.3 MG/DL)</content> Alkaline 38-126 Above high <content [facility] phosphatase normal styleCode="Bold"> Rachid [Enzymatic Alkaline Medical activity/volume] Phosphatase (ALP) Cente r in Serum or Plasma </content>127 IU/L H<content styleCode="Italic s"> (38-126 IU/L)</content> Aspartate 14-36 Above high <content [facility] aminotransferase normal styleCode="Bold"> Faisal hs [Enzymatic Aspartate Medical activity/volume] Aminotransferase Center in Serum or Plasma (AST) </content>98 IU/L H<content styleCode="Italic s"> (14-36 IU/L)</content> Albumin 3.5-5.0 <content [facility] [Mass/volume] in styleCode="Bold"> Faisal hs Serum or Plasma Albumin Medical </content>4.4 Center G/DL<content styleCode="Italic s"> (3.5-5.0 G/DL)</content> ID Date Data Source [id number] 04/09/2018 12:10:00 PM EST [facility]EXT[facility] EN ([facility] [id number] [place]) Name Value Range Interpretation Code Description Data Yareli rce(s) Supporting Document(s ) 7.10 KCUMM 4.4-11.0 WBC COUNTS INCLUDE 234 BEDS AT [facility] ([facility]) 5.03 MCUMM 4.0-5.1 RBC COUNTS INCLUDE 234 BEDS AT THE [facility] ([facility]) 79.3 FL 80.0-100.0 MCV COUNTS INCLUDE 234 BEDS AT [facility] ([facility]) 14.1 G/DL 12.3-16.0 HGB COUNTS INCLUDE 234 BEDS AT [facility] ([facility]) 39.9 % 36.0-46.0 HCT COUNTS INCLUDE 234 BEDS AT [facility] ([facility]) 35.3 G/DL 32.0-37.0 MCHC [facility]) 13.7 % 11.5-14.5 RDW COUNTS INCLUDE 234 BEDS AT [facility] ([facility]) 312 KCUMM 130-400 PLT COUNTS INCLUDE 234 BEDS AT [facility] ([facility]) 28.0 PG 26.0-34.0 MCH COUNTS INCLUDE 234 BEDS AT [facility] ([facility]) 0.0 /100 0 NRBC% COUNTS INCLUDE 234 BEDS AT [facility] ([facility]) New parameters included in the report o f automated CBCNRBC(%/#) Is a direct count of Nucleated Red Blood cell, and will bereported with every CBC count. WBC will automatically be corrected withthe presence of NRBC. 10.9 FL 8.0-11.0 MPV COUNTS INCLUDE 234 BEDS AT [facility] ([facility]) 0.00 KCUMM 0.0 NRBC ABS# COUNTS INCLUDE 234 BEDS AT [facility] ([facility]) ID Date Data Source [id number] 04/09/2018 12:10:00 PM EST [facility]EXT[facility] EN ([facility] [id number] [place]) Name Value Range Interpretation Description Data Sup porting Code Source(s) Document(s ) 4.7 MEQ/L 3.5-5.3 POTASSIUM COUNTS INCLUDE 234 BEDS AT [facility] ([facility]) 140 MEQ/L 137-145 SODIUM [facility]) 32 MEQ/L 22-30 Above high normal CARBON DIOXIDE [facility]) 7.7 G/DL 6.3-8.2 TOTAL PROTEIN [facility]) 102 MEQ/L 98-107 CHLORIDE [facility]) 4.4 G/DL 3.5-5.0 ALBUMIN [facility]) 3.3 G/DL 2.3-3.5 GLOBULIN [facility]) 1.3 >= 1.0 AG RATIO [facility]) 127 IU/L 38-126 Above high normal ALP [facility]) 116 IU/L 7-30 Above high normal ALT [facility]) 98 IU/L 14-36 Above high normal AST (GOT) [facility]) 0.8 MG/DL 0.5-1.3 CREATININE [facility]) 9.5 MG/DL 8.4-10.2 CALCIUM COUNTS INCLUDE 234 BEDS AT [facility] ([facility]) 78 GFR > 60 eGFR [facility]) Estimated GFR is calculated using the Mo dification of Diet in RenalDisease (MDRD) Study equation, and normalized to 1.73m2 body surfce area.The MDRD study equation should only be used in individuals age 18 orolder. It has not been validated f or the following: women,patients with serious comorbid conditions, or on certain medications, orpersons with extremes of body size, muscle mass, or nutritional status. 16 MG/DL 7-17 BUN [facility]EXT[facility] ([facility]) 131 MG/DL 74-106 Above high normal GLUCOSE [facility] ([facility]) 0.5 MG/DL 0.2-1.3 BILI, TOTAL [facility] ([facility]) ID Date Data Source [id number] 04/09/2018 12:10:00 PM EST [facility] EN ([facility] [id number] Center) Name Value Range Interpretation Description Data Sup porting Code Source(s) Document(s ) 140 MEQ/L 137-145 SODIUM [facility] ([facility]) 102 MEQ/L 98-107 CHLORIDE [facility] ([facility]) 7.7 G/DL 6.3-8.2 TOTAL PROTEIN [facility] ([facility]) 32 MEQ/L 22-30 Above high normal [facility] 116 IU/L 7-30 Above high normal ALT [facility]) 98 IU/L 14-36 Above high normal AST (GOT) [facility]) 4.4 G/DL 3.5-5.0 ALBUMIN [facility] ([facility]) 9.5 MG/DL 8.4-10.2 CALCIUM [facility] ([facility]) 16 MG/DL 7-17 BUN [facility] ([facility]) 127 IU/L 38-126 Above high normal ALP [facility] ([facility]) 0.5 MG/DL 0.2-1.3 BILI, TOTAL [facility] ([facility]) 0.8 MG/DL 0.5-1.3 CREATININE [facility] ([facility]) 131 MG/DL 74-106 Above high normal GLUCOSE COUNTS INCLUDE 234 BEDS AT [facility] ([facility]) ID Date Data Source [id number] 04/09/2018 12:10:00 PM EST [facility] EN ([facility] [id number] [place]) Name Value Range Interpretation Code Description Data Yareli rce(s) Supporting Document(s ) 175 MG/DL < 100 Above high normal LDL- CALC [facility] ([facility]) 151 MG/DL < 150 Above high normal TRIGLYCERIDES [facility]) 39 MG/DL > 60 Below low normal HDL- CHOL [facility] ([facility]) 244 MG/DL <200 Above high normal CHOLESTEROL COUNTS INCLUDE 234 BEDS AT [facility] ([facility]) ID Date Data Source [id number] 04/09/2018 12:10:00 PM EST [facility] EN ([facility] [id number] [place]) Name Value Range Interpretation Code Description Data Yareli rce(s) Supporting Document(s ) 151 MG/DL < 150 Above high normal TRIGLYCERIDES COUNTS INCLUDE 234 BEDS AT THE [facility] ([facility]) 244 MG/DL <200 Above high normal CHOLESTEROL COUNTS INCLUDE 234 BEDS AT [facility] ([facility]) ID Date Data Source [id number] 04/09/2018 12:10:00 PM EST [facility] EN ([facility] [id number] [place]) Name Value Range Interpretation Code Description Data Yareli rce(s) Supporting Document(s ) 0.935 0.465-4.68 TSH COUNTS INCLUDE 234 BEDS AT [facility] ([facility]) ID Date Data Source [id number] 04/09/2018 12:10:00 PM EST [facility] EN ([facility] [id number] [place]) Name Value Range Interpretation Code Description Data Yareli rce(s) Supporting Document(s ) NEGATIVE HBsAb COUNTS INCLUDE 234 BEDS AT [facility] ([facility]) VITROS Anti-HBs Test ResultClinical Inte rpretation of Immune Status<5.00 mIU/mL NegativePatient is considered to be not immune to infection with HBV.>=5.00 mIU/mL and <12.0 mIU/mL IndeterminateUnab le to determine if anti-HBs is present at levels consistent withimmunity.Patient's immune status should be further assessed by considering otherclinical information or retesting another specimen drawn at a later time.>=12.0 mIU/mL PositivePatien t is considered to be immune to infection with HBV.

ID Date Data Source [id number] 04/09/2018 12:10:00 PM EST [facility] EN ([facility] [id number] [place]) Name Value Range Interpretation Code Description Data Yareli rce(s) Supporting Document(s ) NEGATIVE NEGATIVE HBcAb COUNTS INCLUDE 234 BEDS AT [facility] ([facility]) ID Date Data Source [id number] 04/09/2018 12:10:00 PM EST [facility]EXT[facility] EN ([facility] [id number] [place]) Name Value Range Interpretation Code Description Data Yareli rce(s) Supporting Document(s ) NEGATIVE NEGATIVE HBsAg COUNTS INCLUDE 234 BEDS AT [facility] ([facility]) ID Date Data Source [id number] 04/09/2018 12:10:00 PM EST [facility]EXT[facility] EN ([facility] [id number] [place]) Name Value Range Interpretation Code Description Data Yareli rce(s) Supporting Document(s ) 176.50 VARICELLA IGG COUNTS INCLUDE 234 BEDS AT [facility] ([facility]) Index Interpretation<135.0 0 Negative - Antibody not [id number] Equivocal>or =165.00 Positive - Antibody detectedA positive result indicates that the patient has antibodyto VZV but does not differentiate between an active orpast i nfection. The clinical diagnosis must be interpretedin conjunction with the clini elena signs and symptoms ofthe patient. This assay reliably measures immunity dueto p revious infection but may not be sensitive enough todetect antibodies induced by va ccination. Thus, anegative result in a vaccinated individual does notnecessaril y indicate susceptibility to VZV infection.

Procedure Social History Code Duration Value Status Description Data Source(s ) Smoking 12/07/2019 Denies Ever completed Denies Ever Anderson s 12:24:00 AM EDT Smoked Smoked Medical C enter Smoking 12/06/2019 Denies Ever completed Denies Ever Anderson s 11:38:00 PM EDT Smoked Smoked Medical C enter Smoking 12/06/2019 Denies Ever completed Denies Ever Anderson s 11:29:00 PM EDT Smoked Smoked Medical C enter Smoking 11/24/2018 Denies Ever completed Denies Ever Anderson s 11:30:00 AM EDT Smoked Smoked Medical C enter Smoking 11/24/2018 Denies Ever completed Denies Ever Anderson s 11:18:00 AM EDT Smoked Smoked Medical C enter Smoking 11/24/2018 Denies Ever completed Denies Ever Anderson s 11:17:00 AM EDT Smoked Smoked Medical C enter Caffeine Use 04/09/2018 completed [facility]EXTGEN (Martín nt Details 12:00:00 AM EST [facility]) 04/09/2018 Never smoked completed Never smoked NEXTGEN (S aint 12:00:00 AM EST tobacco tobacco [facility]) Smoking 04/09/2018 Never smoker completed Never smoker NEXTGEN (S aint 12:00:00 AM EST [facility]) Smoking Unknown if completed Unknown if ever [facility] ever smoked smoked Medical Cente r Alcohol Use completed [facility] ([facility]) Vital Signs ID Date Data Source UNK Name Value Range Interpretation Code Description Data Source(s) Diastolic blood 65 mm[Hg] 65 mm[Hg] [facility] Systolic blood 125 mm[Hg] 125 mm[Hg] [facility] Body temperature 37.084039 37.389200 [facility] Respiratory rate 17 /min 17 /min [facility] Oxygen saturation 99 % 99 % [facility] by Pulse oximetry Heart rate 73 /min 73 /min [facility] Diastolic blood 100 mm[Hg] 100 mm[Hg] [facility] Systolic blood 198 mm[Hg] 198 mm[Hg] [facility] Body temperature 36.855197 36.474495 [facility] Respiratory rate 17 /min 17 /min [facility] Oxygen saturation 96 % 96 % [facility] by Pulse oximetry Heart rate 89 /min 89 /min [facility] Diastolic blood 128 mm[Hg] 128 mm[Hg] [facility] Systolic blood 225 mm[Hg] 225 mm[Hg] [facility] Body temperature 37.803782 37.579576 [facility] Respiratory rate 18 /min 18 /min [facility] Oxygen saturation 97 % 97 % [facility] in [facility] by Pulse oximetry Heart rate 82 /min 82 /min [facility] Diastolic blood 82 mm[Hg] 82 mm[Hg] [facility] Systolic blood 142 mm[Hg] 142 mm[Hg] [facility] Body temperature 36.089557 36.155332 Delores [facility] Respiratory rate 19 /min 19 /min [facility] Oxygen saturation 95 % 95 % [facility] in [facility] by Pulse oximetry Heart rate 86 /min 86 /min [facility] Body height 165.466098 165.540288 cm [facility] Diastolic blood 89 mm[Hg] 89 mm[Hg] [facility] Systolic blood 145 mm[Hg] 145 mm[Hg] [facility] Oxygen saturation 94 % 94 % [facility] ([facility] in [facility] by Pulse oximetry Center) Body mass index 39.55 kg/m2 Overweight 39.55 kg/m2 [facility] ([facility] (BMI) [Ratio] [facility]) Respiratory rate 19 /min 19 /min COUNTS INCLUDE 234 BEDS AT [facility] ([facility]) Body temperature 36.50 Delores 36.50 Delores COUNTS INCLUDE 234 BEDS AT [facility] ([facility]) Heart rate 76 /min 76 /min COUNTS INCLUDE 234 BEDS AT [facility] ([facility]) Diastolic blood 88 mm[Hg] 88 mm[Hg] [facility] [place] ( [facility] pressure [facility]) Systolic blood 146 mm[Hg] 146 mm[Hg] [facility] [place] ([facility]) Body weight 106.141 kg 106.141 kg COUNTS INCLUDE 234 BEDS AT [facility] ([facility]) Body height 163.83 cm 163.83 cm COUNTS INCLUDE 234 BEDS AT [facility] ([facility]) Patient Treatment Plan of Care Planned Activity Planned Date Details Description Data Source (s) Metformin hydrochloride 500 12/27/2014 [facility] ([facility] Oral Tablet 12:00:00 AM [facility]) Lisinopril 5 MG Oral Tablet 12/27/2014 [facility] Amlodipine 5 MG Oral Tablet 11/18/2014 [facility] ([facility] 12:00:00 AM [facility]) Hydrochlorothiazide 12.5 MG 11/18/2014 [facility] ([facility] Oral Tablet 12:00:00 AM [facility]) Benicar 5 mg tablet 02/02/2014 [facility] ([facility] 12:00:00 AM [facility]) POLYETHYLENE GLYCOL 3350 142 01/26/2014 [facility] ([facility] MG/ML Oral Solution [Miralax] 12:00:00 AM [facility]) nebivolol 5 MG Oral Tablet 01/05/2014 N EXTGEN ([facility] [Bystolic] 12:00:00 AM [facility]) Ibuprofen 800 MG Oral Tablet [facility] Acetaminophen 325 MG / [facility] Oxycodone Hydrochloride [address] [facility] Oral Tablet Lidocaine 50 MG/ML Topical S [facility] Cyclobenzaprine hydrochloride [facility] 10 MG Oral Tablet [facility] meloxicam 15 MG Oral Tablet [facility]
--- NOTE | 2019-12-09 11:43 | PDOC ---
History of Present Illness - General Chief Complaint: Pain Stated Complaint: HEMORRHOID Time Seen by Provider: 12/09/19 11:02 History Source: Patient, Family - History of Present Illness Timing/Duration: reports: other (1 month) Past History - Medical History Allergies/Adverse Reactions: Allergies Allergy/AdvReac Type Severity Reaction Status Date / Time No Known Allergies Allergy Verified 12/09/19 10:53 Home Medications: Ambulatory Orders Acetaminophen [Tylenol] 650 mg PO Q6H #30 tablet 12/09/19 Benzocaine/Resorcin/Aloe/E,A,D [Vagisil Cream] 28 gm TP ASDIR #1 cream..g. 12/09/19 COPD: No Diabetes: Yes (pre) HTN: Yes - Surgical History Cholecystectomy: Yes - Reproductive History Is Patient Now?: No - Psycho-Social/Smoking History Smoking History: Never smoked Information on smoking cessation initiated: No - Substance Abuse Hx (Audit-C & DAST Scrn) How often the patient has a drink containing alcohol: Never Score: In Men: 4 or > Positive; In Women: 3 or > Positive: 0 Screen Result (Pos requires Nsg. Audit-10AR): Negative In the last yr the pt used illegal drug/Rx for NonMed reason: No Score: Yes response is considered Positive: 0 Screen Result (Positive result requires Nsg. DAST-10): Negative Review of Systems - Review of Systems Constitutional: No: Chills, Fever ABD/GI: No: Blood Streaked Bowels, Constipated, Diarrhea, Nausea, Rectal Bleeding, Vomiting, Abdominal cramping, Tarry Stools : Yes: Burning, Pain (vaginal). No: Dysuria, Discharge, Frequency, Flank Pain, Hematuria *Physical Exam - Vital Signs Last Vital Signs Temp Pulse Resp BP Pulse Ox 98 F 102 H 19 157/90 97 12/09/19 10:51 12/09/19 10:51 12/09/19 10:51 12/09/19 10:51 12/09/19 10:51 - Physical Exam General Appearance: Yes: Appropriately Dressed, Mild Distress HEENT: positive: Normal Voice Neck: positive: Supple Respiratory/Chest: negative: Respiratory Distress Female Pelvic Exam: positive: other (intra-oitus appears slightly erythematous w/ ttp, speculum and rectal exam unremarkable) Gastrointestinal/Abdominal: positive: Normal Bowel Sounds, Soft. negative: Tender, Distended, Guarding, Rebound Musculoskeletal: negative: CVA Tenderness Integumentary: positive: Dry, Warm Neurologic: positive: Fully Oriented, Alert, Normal Mood/Affect ED Treatment Course - Medications Given in the ED: ED Medications Discontinued Medications Generic Name Dose Route Start Last Admin Trade Name Bk PRN Reason Stop Dose Admin Acetaminophen 1,000 mg 12/09/19 11:21 12/09/19 11:24 Tylenol - PO 12/09/19 11:22 1,000 mg ONCE ONE Administration Medical Decision Making - Medical Decision Making 12/09/19 12:45 59-year-old female, h/o HTN, NIDDM, s/p remote hysterectomy for fibroids, here with vaginal burning pain extending into her perineum w/ ? dysuria for 1 month. Per granddaughter, patient was seen in [facility] for same a week ago and states staff never examined patient but started her on rectal cream for possible hemorrhoids. Patient states symptoms persist. No dysuria, vaginal discharge or bleeding, abdominal pain, change in BM, flank pain, nausea vomiting fever or chills. Not currently sexually active see exam ? Atrophic vaginitis UA wnl -dc w/ pain control, topical non-hormonal moisturizer -pt to f/u with [employer] as discussed 12/09/19 12:49 Discharge - Discharge Information Problems reviewed: Yes Clinical Impression/Diagnosis: Vaginal discomfort Condition: Good Disposition: HOME - Additional Discharge Information Prescriptions: Acetaminophen [Tylenol] 650 mg PO Q6H #30 tablet Benzocaine/Resorcin/Aloe/E,A,D [Vagisil Cream] 28 gm TP ASDIR #1 cream..g. - Follow up/Referral Referrals: Rossana Martin [Primary Care Provider] - - Patient Discharge Instructions Patient Printed Discharge Instructions: Atrophic Vaginitis Additional Instructions: Your symptoms might be due to vaginal dryness and irritation from low estrogen Take Tylenol and will use Vagisil moisturizing cream as directed Please call your [employer] today to make an appointment Print Language: [id number] - Post Discharge Activity
[2019-12-09 12:30] LABS: PH,URINE 5.5 (5.0-8.0); URINE APPEARANCE CLEAR; URINE BILIRUBIN NEGATIVE (NEGATIVE); URINE COLOR YELLOW; URINE GLUCOSE (UA) NEGATIVE (NEGATIVE); URINE KETONE NEGATIVE (NEGATIVE); URINE LEUK ESTERASE NEGATIVE (NEGATIVE); URINE NITRITE NEGATIVE (NEGATIVE); URINE PROTEIN NEGATIVE (NEGATIVE); URINE UROBILINOGEN 0.2 mg/dL (0.2-1.0)
== END 2019-12-09 13:17 | disposition home or self-care (01) ==
LOC: JERFT 10:48
DX: N89.8 Other specified noninflammatory disorders of vagina (principal)
CPT/HCPCS: 81003; 87086; 99283-25

== ENCOUNTER 2021-01-11 14:07 | Emergency (ER) | payer OTHER ==
[2021-01-11 14:27] VITALS: TEMP 98; BMI 37.4
[2021-01-11] MEDS ORDERED: LIDOCAINE HCL 2% JELLY 10 ML CARTRIDGE PR ONE (15:25)
[2021-01-11] MEDS ORDERED: ACETAMINOPHEN 1000 MG/100 ML VIAL IVPB ONE (15:26)
[2021-01-11] MEDS ORDERED: LIDOCAINE HCL 2% JELLY 10 ML CARTRIDGE ONE ×2 (15:34→16:30)
[2021-01-11] MEDS ORDERED: ACETAMINOPHEN INJECTION 100 ML IVPB ONE (15:35)
[2021-01-11 16:09] LABS: BASO % 0.9 % (0-2.0); EOS % 0.5 % (0-4.5); HEMATOCRIT 43.7 % (32.4-45.2); HEMOGLOBIN 15.8 GM/dL (10.7-15.3); LYMPH % 45.7 % (8-40); MEAN CELL VOLUME 80.5 fl (80-96); MEAN PLT VOLUME 9.2 fl (7.5-11.1); MONO % 6.1 % (3.8-10.2); NEUT % 46.8 % (42.8-82.8); PLATELET COUNT 274 10^3/uL (134-434); RBC 5.43 M/mm3 (3.60-5.2); RDW 14.2 % (11.6-15.6); WHITE BLOOD COUNT 8.7 K/mm3 (4.0-10.0)
[2021-01-11] MEDS ORDERED: SODIUM CHLORIDE 1,000 ML IV STA (16:20)
[2021-01-11 16:25] LABS: EPI CELLS 16 /uL (0-25.1); HYALINE CASTS 0 /uL (0-3.1); PH,URINE 6.5 (5.0-8.0); URINE APPEARANCE CLEAR; URINE BACTERIA 116 /uL (0-1359); URINE BILIRUBIN NEGATIVE (NEGATIVE); URINE COLOR YELLOW; URINE GLUCOSE (UA) NEGATIVE (NEGATIVE); URINE KETONE NEGATIVE (NEGATIVE); URINE LEUK ESTERASE NEGATIVE (NEGATIVE); URINE NITRITE NEGATIVE (NEGATIVE); URINE PROTEIN 1+ (NEGATIVE); URINE RBC 18 /uL (0-23.9); URINE UROBILINOGEN 0.2 mg/dL (0.2-1.0); URINE WBC 5 /uL (0-25.8)
[2021-01-11 16:37] LABS: CALCIUM 9.4 mg/dL (8.5-10.1)
[2021-01-11 16:38] LABS: ALBUMIN 3.8 g/dl (3.4-5.0); BLOOD UREA NITROGEN 10.6 mg/dL (7-18)
[2021-01-11 16:41] LABS: CREATININE 0.8 mg/dL (0.55-1.3)
[2021-01-11 16:44] LABS: BILIRUBIN,TOTAL 0.3 mg/dL (0.2-1); TOT PROT 8.2 g/dl (6.4-8.2)
[2021-01-11] MEDS ORDERED: SULFAMETHOXAZOLE/TRIMETHOPRIM 800MG/160MG D.S. TABLET PO ONE (19:35)
[2021-01-11] MEDS ORDERED: SULFAMETHOXAZOLE/TRIMETHOPRIM 800MG/160MG D.S. TABLET ONE (19:36)
[2021-01-11 21:43] VITALS: BP 142/88; PULSE 89
== END 2021-01-11 21:43 | disposition home or self-care (01) ==
LOC: JER 14:07
PROC: 3E033GC Introduction of Other Therapeutic Substance into Peripheral Vein, Percutaneous Approach (ICD-10-PCS; principal; 2021-01-11)
DX: K62.89 Other specified diseases of anus and rectum (principal); K64.9 Unspecified hemorrhoids
CPT/HCPCS: 36415; 74177-TC; 80053; 81003; 85025; 87086; 99285-25; J0131; Q9967

== ENCOUNTER 2021-02-03 08:59 | Day surgery (SDC) | payer OTHER ==
[2021-02-01 15:53] VITALS: BMI 35.6
[2021-02-03 10:52] VITALS: PULSE 87; TEMP 98.2
[2021-02-03 10:56] VITALS: BP 136/82
== END 2021-02-03 10:55 | disposition home or self-care (01) ==
LOC: FASU-ENDO 08:59
PROVIDERS: ATTEND Internal Medicine Gastroenterology
PROC: 0DB68ZX Excision of Stomach, Via Natural or Artificial Opening Endoscopic, Diagnostic (ICD-10-PCS; 2021-02-03)
PROC: 0DB48ZX Excision of Esophagogastric Junction, Via Natural or Artificial Opening Endoscopic, Diagnostic (ICD-10-PCS; 2021-02-03)
PROC: 0DB98ZX Excision of Duodenum, Via Natural or Artificial Opening Endoscopic, Diagnostic (ICD-10-PCS; principal; 2021-02-03 10:08)
DX: K25.9 Gastric ulcer, unspecified as acute or chronic, without hemorrhage or perforation (principal); K29.50 Unspecified chronic gastritis without bleeding; K20.90 Esophagitis, unspecified without bleeding; R10.13 Epigastric pain
CPT/HCPCS: 82962; 88305-TC; 88342-TC

== ENCOUNTER 2021-03-06 01:52 | Emergency (ER) | payer OTHER ==
[2021-03-06 02:03] VITALS: BP 167/95; PULSE 99; TEMP 97.9; BMI 33.3
[2021-03-06] MEDS ORDERED: ACETAMINOPHEN 500 MG TABLET (FP) PO ONE (04:47)
[2021-03-06] MEDS ORDERED: ACETAMINOPHEN 500 MG TABLET (FP) ONE (06:01)
[2021-03-06 07:25] LABS: BASO % 0.4 % (0-2.0); EOS % 1.5 % (0-4.5); HEMATOCRIT 41.7 % (32.4-45.2); HEMOGLOBIN 14.4 GM/dL (10.7-15.3); LYMPH % 49.3 % (8-40); MCH 27.9 pg (25.7-33.7); MCHC 34.6 g/dl (32.0-36.0); MEAN CELL VOLUME 80.9 fl (80-96); MEAN PLT VOLUME 9.2 fl (7.5-11.1); MONO % 5.3 % (3.8-10.2); NEUT % 43.5 % (42.8-82.8); PLATELET COUNT 304 10^3/uL (134-434); RBC 5.15 M/mm3 (3.60-5.2); RDW 14.1 % (11.6-15.6); WHITE BLOOD COUNT 9.1 K/mm3 (4.0-10.0)
[2021-03-06 07:41] LABS: CALCIUM 9.5 mg/dL (8.5-10.1)
[2021-03-06 07:42] LABS: ALBUMIN 3.6 g/dl (3.4-5.0); BLOOD UREA NITROGEN 20.8 mg/dL (7-18)
[2021-03-06 07:45] LABS: CREATININE 0.9 mg/dL (0.55-1.3)
[2021-03-06 07:47] LABS: BILIRUBIN,TOTAL 0.4 mg/dL (0.2-1)
[2021-03-06 08:48] LABS: EPI CELLS 18 /uL (0-25.1); HYALINE CASTS 2 /uL (0-3.1); PH,URINE 5.5 (5.0-8.0); URINE APPEARANCE CLEAR; URINE BACTERIA 985 /uL (0-1359); URINE BILIRUBIN NEGATIVE (NEGATIVE); URINE COLOR YELLOW; URINE GLUCOSE (UA) NEGATIVE (NEGATIVE); URINE KETONE TRACE (NEGATIVE); URINE LEUK ESTERASE TRACE (NEGATIVE); URINE NITRITE NEGATIVE (NEGATIVE); URINE PROTEIN 1+ (NEGATIVE); URINE RBC 11 /uL (0-23.9); URINE UROBILINOGEN 0.2 mg/dL (0.2-1.0); URINE WBC 19 /uL (0-25.8)
[2021-03-06 13:13] LABS: URINE CRYSTALS CA OXALATES /hpf
== END 2021-03-06 10:24 | disposition home or self-care (01) ==
LOC: JER 01:52
DX: N76.89 Other specified inflammation of vagina and vulva (principal)
CPT/HCPCS: 36415; 74176-TC; 80053; 81003; 85025; 87086; 99284-25

== ENCOUNTER 2021-03-24 10:42 | Day surgery (SDC) | payer OTHER ==
[2021-03-21 13:05] VITALS: BMI 27.4
[2021-03-24 12:08] VITALS: BP 123/78; PULSE 88; TEMP 97.8
== END 2021-03-24 12:08 | disposition home or self-care (01) ==
LOC: FASU-ENDO 10:42
PROVIDERS: ATTEND Internal Medicine Gastroenterology
PROC: 0DB68ZX Excision of Stomach, Via Natural or Artificial Opening Endoscopic, Diagnostic (ICD-10-PCS; principal; 2021-03-24 11:33)
DX: Z13.810 Encounter for screening for upper gastrointestinal disorder (principal); K29.50 Unspecified chronic gastritis without bleeding; K31.9 Disease of stomach and duodenum, unspecified
CPT/HCPCS: 82962; 88305-TC; 88342-TC

== ENCOUNTER 2024-08-04 08:15 | Day surgery (SDC) | payer BC, OTHER ==
[2024-07-30 12:08] VITALS: BMI 36.8
[2024-08-04 09:42] VITALS: PULSE 83; RESP 16; TEMP 97.3
[2024-08-04 09:47] VITALS: BP 116/69
== END 2024-08-04 09:40 | disposition home or self-care (01) ==
LOC: FASU-ENDO 08:15
PROVIDERS: ATTEND Internal Medicine Gastroenterology
PROC: 0DB78ZX Excision of Stomach, Pylorus, Via Natural or Artificial Opening Endoscopic, Diagnostic (ICD-10-PCS; 2024-08-04)
PROC: 0DB68ZX Excision of Stomach, Via Natural or Artificial Opening Endoscopic, Diagnostic (ICD-10-PCS; principal; 2024-08-04 08:50)
DX: K29.50 Unspecified chronic gastritis without bleeding (principal); K21.9 Gastro-esophageal reflux disease without esophagitis
CPT/HCPCS: 82962; 88305-TC; 88342-TC

== ENCOUNTER 2024-08-17 05:27 | Day surgery (SDC) | payer BC ==
[2024-08-14 12:17] VITALS: BMI 36.9
[2024-08-17] MEDS: ceFAZolin SODIUM 1 GM VIAL IVPB ONE
[2024-08-17] MEDS ORDERED: BUPIVACAINE HCL/PF 0.25% (2.5MG/ML) 10 ML VIAL ONE (10:31)
[2024-08-17] MEDS ORDERED: ONDANSETRON 4 MG/2 ML VIAL ONE (10:33)
[2024-08-17] MEDS ORDERED: ROCURONIUM BROMIDE 50 MG/5 ML SYRINGE ONE (10:33)
[2024-08-17] MEDS ORDERED: SUGAMMADEX SODIUM 200 MG/2 ML VIAL ONE ×2 (10:33→11:40)
[2024-08-17] MEDS ORDERED: LIDOCAINE HCL 2% 100 MG/5 ML DISP.SYRIN ONE (10:33)
[2024-08-17] MEDS ORDERED: PROPOFOL 20 ML ONE (10:33)
[2024-08-17] MEDS ORDERED: DEXAMETHASONE SOD PHOSPHATE 4 MG/1 ML VIAL ONE (10:33)
[2024-08-17] MEDS ORDERED: MIDAZOLAM HCL 2 MG/2 ML SINGLE DOSE VIAL ONE (10:33)
[2024-08-17] MEDS ORDERED: ACETAMINOPHEN INJECTION 100 ML ONE (10:58)
[2024-08-17] MEDS ORDERED: cefOXitin SODIUM 2 GM VIAL (RESTRICTED TO ID) IVPB ONE (11:08)
[2024-08-17] MEDS: cefOXitin SODIUM 1 GM VIAL (RESTRICTED TO ID) IVPB ONE (11:09)
[2024-08-17] MEDS: BUPIVACAINE HCL/PF 0.25% (2.5MG/ML) 10 ML VIAL IJ ONE ×2 (11:10)
[2024-08-17] MEDS ORDERED: ONDANSETRON 4 MG/2 ML VIAL IVPUSH PRN (11:13)
[2024-08-17] MEDS: LACTATED RINGERS SOLUTION 1,000 ML IV SCH (12:16)
[2024-08-17 13:08] VITALS: RESP 18
[2024-08-17 17:02] VITALS: BP 153/76; PULSE 86; TEMP 97.7
== END 2024-08-17 16:05 | disposition home or self-care (01) ==
LOC: JASU-SURG 05:27
PROVIDERS: ATTEND Surgery
PROC: 06BY0ZC Excision of Hemorrhoidal Plexus, Open Approach (ICD-10-PCS; principal; 2024-08-17 10:00)
DX: K64.8 Other hemorrhoids (principal)
CPT/HCPCS: 82962; 88304-TC; 94760